=== PATIENT | male | born 1990 | race Caucasian/White ===

== ENCOUNTER 2017-02-08 23:49 | Emergency (ER) | payer SELFPAY ==
[~2017-02-08] VITALS: Ht 180.3 cm; Wt 70.0 kg
[2017-02-09 01:10] VITALS: BP 125/69
[2017-02-09] MEDS ORDERED: CEFTRIAXONE 1 G PREMIX 50 ML IV ONE (02:45)
[2017-02-09] MEDS ORDERED: LIDOCAINE HCL 1% 20ML VIAL (Pyxis) INJ INFIL ONE (02:45)
[2017-02-09] MEDS ORDERED: CEFTRIAXONE SODIUM 1 G/VIAL IM ONE (02:45)
== END 2017-02-09 03:25 | disposition home or self-care (01) ==
LOC: ER 02-09 02:40
DX: L03.113 Cellulitis of right upper limb (principal); F17.210 Nicotine dependence, cigarettes, uncomplicated
CPT/HCPCS: 96372; 99283; J0696; J3490